=== PATIENT | male | born 1980 | race Caucasian/White ===

== ENCOUNTER → 2017-04-03 | Outpatient (CLI) | payer MEDICAID | LOC: FIMAGING 14:38 | PROVIDERS: ATTEND Family Medicine | DX: C00-D49 Neoplasms (principal); G93.9 Disorder of brain, unspecified ==

== ENCOUNTER → 2018-06-12 | Outpatient (CLI) | payer MEDICAID | LOC: FIMAGING 18:14 | PROVIDERS: ATTEND Family Medicine | DX: C71.9 Malignant neoplasm of brain, unspecified (principal) ==